=== PATIENT | male | born 1955 | race Caucasian/White ===

== ENCOUNTER → 2016-09-15 | Outpatient (CLI) | payer BC ==
[~2016-09-15] MED LIST: ASCO10004 PO; CHOL20002 PO; CYAN1TAB29 PO; HYDR-3138 PO; HYDR12.58 PO; HYDR25TA6 PO; LEVO50TA5 PO; MELO15TA6 PO; MULT-658 PO; NAPR500T PO; POTA20TA89 PO; TERB250T3 PO; VITA0.4T6 PO; VITA1CAP PO
[2016-09-15 15:00] LABS: ASPARTATE AMINO TRANSFERASE 25 U/L (15-37); BLOOD UREA NITROGEN 27 mg/dL (7-18)
== END | disposition home or self-care (01) ==
LOC: STAR 13:08
PROVIDERS: ATTEND Otolaryngology Facial Plastic Surgery
DX: Z01.818 Encounter for other preprocedural examination (principal); R94.31 Abnormal electrocardiogram [ECG] [EKG]; G47.33 Obstructive sleep apnea (adult) (pediatric); J34.2 Deviated nasal septum; M95.0 Acquired deformity of nose; Z95.0 Presence of cardiac pacemaker
CPT/HCPCS: 36415; 71020; 80053; 85025; 93005

== ENCOUNTER 2016-10-02 06:31 | Day surgery (SDC) | payer BC ==
[~2016-10-02] VITALS: Ht 177.8 cm; Wt 122.0 kg
[2016-10-02] MEDS ORDERED: LACTATED RINGERS 1,000 ML IV SCH (07:10)
[2016-10-02 07:25] VITALS: BP 142/83
[2016-10-02] MEDS ORDERED: EPINEPHRINE 1 MG/ML, 1ML ONE (07:31)
[2016-10-02] MEDS ORDERED: MUPIROCIN OINT 2%, 22GM ONE (07:31)
[2016-10-02] MEDS ORDERED: COCAINE TOPICAL SOLN 4%, 4ML ONE (07:31)
[2016-10-02] MEDS ORDERED: LIDOCAINE/PF 1%, 30ML ONE (07:31)
[2016-10-02] MEDS ORDERED: OXYMETAZOLINE NASAL SPRAY 0.05%, 15ML ONE (07:31)
[2016-10-02] MEDS ORDERED: FENTANYL PF 250 MCG/5ML ONE (07:37)
[2016-10-02] MEDS ORDERED: MIDAZOLAM 1 MG/ML, 2ML ONE (07:37)
[2016-10-02] MEDS ORDERED: PROMETHAZINE 25 MG/ML, 1ML IV PRN (08:30)
[2016-10-02] MEDS ORDERED: ACETAMINOPHEN 325 MG TABLET PO PRN (08:30)
[2016-10-02] MEDS ORDERED: MEPERIDINE/PF 25MG/0.5ML IVPush PRN (08:30)
[2016-10-02] MEDS ORDERED: hydrALAzine 20 MG/ML, 1ML IV PRN (08:30)
[2016-10-02] MEDS ORDERED: ONDANSETRON 2MG/ML, 2ML IVPush PRN (08:30)
[2016-10-02] MEDS ORDERED: OXYcodone 5 MG/5 ML ORAL.SOL UDC PO PRN (08:30)
[2016-10-02] MEDS ORDERED: HYDROmorphone 1 MG/ML, 1ML IV PRN (08:30)
[2016-10-02] MEDS ORDERED: FENTANYL PF 100 MCG/2ML IV PRN (08:30)
[2016-10-02] MEDS ORDERED: ALBUTEROL SULFATE 2.5 MG/3 ML NPPB PRN (08:30)
[2016-10-02] MEDS ORDERED: LABETALOL 5MG/ML, 20ML IV PRN (08:30)
[2016-10-02] MEDS ORDERED: NEOSTIGMINE 1 MG/ML, 10ML ONE (08:37)
[2016-10-02] MEDS ORDERED: DEXAMETHASONE 4 MG/ML, 1ML ONE (08:37)
[2016-10-02] MEDS ORDERED: PROPOFOL 10 MG/ML, 20ML ONE (08:37)
[2016-10-02] MEDS ORDERED: ONDANSETRON 2MG/ML, 2ML ONE (08:37)
[2016-10-02] MEDS ORDERED: ROCURONIUM 10 MG/ML ONE (08:37)
[2016-10-02] MEDS ORDERED: METOCLOPRAMIDE 5 MG/ML, 2ML ONE (08:37)
[2016-10-02] MEDS ORDERED: KETAMINE 10 MG/ML, 20ML ONE (08:55)
== END 2016-10-02 15:15 ==
LOC: OUT 06:31
PROVIDERS: ATTEND Otolaryngology Facial Plastic Surgery
DX: J34.2 Deviated nasal septum (principal); J34.3 Hypertrophy of nasal turbinates; G47.33 Obstructive sleep apnea (adult) (pediatric); M95.0 Acquired deformity of nose; J34.89 Other specified disorders of nose and nasal sinuses; E66.9 Obesity, unspecified; Z68.38 Body mass index [BMI] 38.0-38.9, adult; Z95.0 Presence of cardiac pacemaker; Z98.890 Other specified postprocedural states
CPT/HCPCS: 30140; 30465; 30520; J0171; J1100; J2250; J2405; J2704; J2710; J2765; J3010; J3490; J7120

== ENCOUNTER → 2019-02-06 | Outpatient (CLI) | payer BC ==
[~2019-02-06] MED LIST changes: -CHOL20002 PO; +CHOL200052 PO; -HYDR-3138 PO; +HYDR-3237 PO; -HYDR12.58 PO; +HYDROCHLOROTH12.5 MG PO; +NAPR-856 PO; -NAPR500T PO; +REGADENOSON 0.4 MG/5 ML SYRINGE ONE
== END | disposition home or self-care (01) ==
LOC: CFH 08:04
PROVIDERS: ATTEND Internal Medicine Cardiovascular Disease
DX: I10 Essential (primary) hypertension (principal); R00.2 Palpitations
CPT/HCPCS: 78452; 93017; A9502; J2785